=== PATIENT | female | born 1985 | race American Indian/Alaskan Native ===

== ENCOUNTER 2019-12-02 16:13 | Emergency (ER) | payer SELFPAY ==
[2019-12-02] MEDS ORDERED: Amoxicillin 250 MG/5 ML Susp 150 ML Bottle PO ONE (16:47)
[2019-12-02] MEDS ORDERED: Amoxicillin 500 MG Cap PO ONE (16:54)
--- NOTE | 2019-12-02 16:58 | EDM.PDOC ---
ED HPI GENERAL MEDICAL PROBLEM - General Chief Complaint: General Stated Complaint: SWOLLEN BUMPS ON NECK/SHOULDER PAIN DOWN LT ARM Time Seen by Provider: 12/02/19 16:20 - History of Present Illness INITIAL COMMENTS - FREE TEXT/NARRATIVE: History of present illness: Patient presents to the ED with painful adenopathy in her left anterior cervical chain. No fever no sore throat no runny nose no cough but she has had a rash off and on on the back of her neck for several years that has been flared up lately she saw Dr. nick for it who gave her some cream that did not help the rash has been itchy and irritated lately. No other medical problems no other complaints no allergies. Review of systems: As per history of present illness and below otherwise all systems reviewed and negative. Past medical history: As per history of present illness and as reviewed below otherwise noncontributory. Surgical history: As per history of present illness and as reviewed below otherwise noncontributory. Social history: No reported history of drug or alcohol abuse. Family history: As per history of present illness and as reviewed below otherwise noncontributory. Physical exam: HEENT: Atraumatic, normocephalic, pupils reactive, negative for conjunctival pallor or scleral icterus, mucous membranes moist, throat clear, neck supple, nontender, trachea midline. 2 tender lymph nodes that are swollen on the anterior left cervical chain. Lungs: Clear to auscultation, breath sounds equal bilaterally, chest nontender. Heart: S1S2, regular, negative for clicks, rubs, or JVD. Abdomen: Soft, nondistended, nontender. Negative for masses or hepatosplenomegaly. Negative for costovertebral tenderness. Pelvis: Stable nontender. Genitourinary: Deferred. Rectal: Deferred. Extremities: Atraumatic, negative for cords or calf pain. Neurovascular unremarkable. Neuro: Awake, alert, oriented. Cranial nerves II through XII unremarkable. Cerebellum unremarkable. Motor and sensory unremarkable throughout. Exam nonfocal. Skin: There is a confluent hypertrophied excoriated cracked raised leathery lesion approximately 6 x 8 cm to the posterior neck that has no reactivity with Patel lamp. Does not appear to be cellulitic. Diagnostics: [] Therapeutics: [] Impression: [] Plan: [] Definitive disposition and diagnosis as appropriate pending reevaluation and review of above. Left Clavicle Pain Score (Numeric/FACES): 6 - Related Data Allergies Allergy/AdvReac Type Severity Reaction Status Date / Time No Known Allergies Allergy Verified 12/02/19 16:24 Home Meds: Home Meds Amoxicillin 500 mg PO TID 10 Days #30 tab 12/02/19 [Rx] Betamethasone/Clotrimazole [Lotrisone] 15 gm .XX BID #1 tube 12/02/19 [Rx] Past Medical History - Past Health History Medical/Surgical History: Denies Medical/Surgical History HEENT History: Reports: None Cardiovascular History: Reports: None Respiratory History: Reports: None Gastrointestinal History: Reports: None Genitourinary History: Reports: None 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 Musculoskeletal History: Reports: None Neurological History: Reports: None Psychiatric History: Reports: None Endocrine/Metabolic History: Reports: None Hematologic History: Reports: None Immunologic History: Reports: None Oncologic (Cancer) History: Reports: None Dermatologic History: Reports: None - Infectious Disease History Infectious Disease History: Reports: Chicken Pox - Past Surgical History Head Surgeries/Procedures: Reports: None Musculoskeletal Surgical History: Reports: None Social & Family History - Family History Family Medical History: Noncontributory - Tobacco Use Smoking Status *Q: Never Smoker Second Hand Smoke Exposure: No - Caffeine Use Caffeine Use: Reports: Coffee - Recreational Drug Use Recreational Drug Use: No ED ROS GENERAL - Review of Systems Review Of Systems: See Below ED EXAM, GENERAL - Physical Exam Exam: See Below Course - Vital Signs Text/Narrative:: Patient will be started on amoxicillin and Lotrisone lotion will refer to Dr. Reyes dermatology for the rash. Last Recorded V/S: Last Vital Signs Temp 36.0 C L 12/02/19 16:25 Pulse 72 12/02/19 16:25 Resp 14 12/02/19 16:25 BP 117/66 12/02/19 16:25 Pulse Ox 98 12/02/19 16:25 - Orders/Labs/Meds Meds: Medications Discontinued Medications Generic Name Dose Route Start Last Admin Trade Name Freq PRN Reason Stop Dose Admin Amoxicillin 1,000 mg 12/02/19 16:47 Amoxil 250 Mg/5 Ml Susp PO 12/02/19 16:48 ONETIME ONE Amoxicillin 1,000 mg 12/02/19 16:54 Amoxil PO 12/02/19 16:55 ONETIME ONE Departure - Departure Time of Disposition: 16:53 Disposition: Home, Self-Care 01 Condition: Good Clinical Impression: Adenitis, Rash - Discharge Information *PRESCRIPTION DRUG MONITORING PROGRAM REVIEWED*: Not Applicable *COPY OF PRESCRIPTION DRUG MONITORING REPORT IN PATIENT SHIRA: Not Applicable Prescriptions: Amoxicillin 500 mg PO TID 10 Days #30 tab Betamethasone/Clotrimazole [Lotrisone] 15 gm .XX BID #1 tube Instructions: Rash, Adult Referrals: PCP,None [Primary Care Provider] - Forms: ED Department Discharge Additional Instructions: The following information is given to patients seen in the emergency department who are being discharged to home. This information is to outline your options for follow-up care. We provide all patients seen in our emergency department with a follow-up referral. The need for follow-up, as well as the timing and circumstances, are variable depending upon the specifics of your emergency department visit. If you don't have a primary care physician on staff, we will provide you with a referral. We always advise you to contact your personal physician following an emergency department visit to inform them of the circumstance of the visit and for follow-up with them and/or the need for any referrals to a consulting specialist. The emergency department will also refer you to a specialist when appropriate. This referral assures that you have the opportunity for follow-up care with a specialist. All of these measure are taken in an effort to provide you with optimal care, which includes your follow-up. Under all circumstances we always encourage you to contact your private physician who remains a resource for coordinating your care. When calling for follow-up care, please make the office aware that this follow-up is from your recent emergency room visit. If for any reason you are refused follow-up, please contact the [facility] Emergency Department at and asked to speak to the emergency department charge nurse. [facility] [address] [place] [id number] [facility] [address] [place] [id number] Keon Reyes [address] [facility] 102 Sepsis Event Note (ED) - Evaluation Sepsis Screening Result: No Definite Risk - Focused Exam Vital Signs: Vital Signs Temp Pulse Resp BP Pulse Ox 12/02/19 16:25 36.0 C L 72 14 117/66 98
[2019-12-02 17:00] VITALS: BP 111/65; PULSE 69
== END 2019-12-02 17:05 | disposition home or self-care (01) ==
LOC: MW.ED 16:13
DX: I88.9 Nonspecific lymphadenitis, unspecified (principal); R21 Rash and other nonspecific skin eruption
CPT/HCPCS: 99283; A9270

== ENCOUNTER 2020-04-22 13:44 | Emergency (ER) | payer MEDICAID, OTHER ==
[2020-04-22] MEDS ORDERED: Sodium Chloride 0.9% 2.5 ML Syringe FLUSH PRN (13:55)
[2020-04-22] MEDS ORDERED: Sodium Chloride 0.9% 10 ML Syringe FLUSH PRN (13:55)
--- NOTE | 2020-04-22 14:05 | EDM.PDOC ---
ED HPI GENERAL MEDICAL PROBLEM - General Chief Complaint: Cardiovascular Problem Stated Complaint: CHEST PAIN Time Seen by Provider: 04/22/20 13:44 Source of Information: Reports: Patient, Old Records History Limitations: Reports: No Limitations - History of Present Illness INITIAL COMMENTS - FREE TEXT/NARRATIVE: This is a very pleasant 34-year-old female with no pertinent past medical history presenting with chest discomfort. She describes substernal chest discomfort, onset yesterday morning. She describes it as "like a broken heart, but worse". She states that it is worse when she sits forward or when she touches her chest, which she states is tender. She has never had that in the past. The pain does not radiate. It does get somewhat worse with deep inspiration. No self treatment prior to arrival. She denies any associated nausea, vomiting, diaphoresis, or recent exertional chest discomfort or shortness of breath. Patient denies history of venous thromboembolism, lower extremity pain or swelling, hemoptysis, recent surgery or immobilization or long travel, history of active malignancy, or hormonal medication/product usage. No prior history of coronary artery disease or stroke. No family history of premature CAD. No recent viral URI type symptoms or recent illness. ROS: A 10-point review of systems was negative, except as noted in the HPI (or in the ROS section of this note). Past medical history: Reviewed, no additional pertinent history. Surgical history: Reviewed in system, no additional pertinent history. Social history: Reviewed in system, no additional pertinent history. Family history: Reviewed in system, no additional pertinent history. PHYSICAL EXAM Vital signs reviewed. Nursing notes reviewed. Constitutional: Awake, alert, non-distressed. Head: Normocephalic, atraumatic. Eyes: EOMI, conjunctiva normal, no discharge, no scleral icterus. Ears, Nose, Throat: External ears and nose normal, moist oral mucosa. Cardiovascular: 2+ radial pulses bilaterally, capillary refill less than 2 seconds. No lower extremity edema. Pulmonary: normal work of breathing, no accessory muscle use. Abdomen/GI: Soft, nontender, nondistended, no guarding or rigidity, no masses. Musculoskeletal: No deformities. Integumentary: Appropriate color for ethnicity, warm, dry, no pallor or jaundice, no rash. Neurologic: Alert, answering questions appropriately, normal speech, no facial droop, moving all extremities well. Psychiatric: Appropriate mood and affect, normal thought process. This patient was seen and evaluated during the 2019 SARS-CoV-2 novel coronavirus pandemic period. Community viral transmission is ongoing at time of this encounter and the emergency department is operating under pandemic response procedures. chest Pain Score (Numeric/FACES): 4 - Related Data Allergies Allergy/AdvReac Type Severity Reaction Status Date / Time No Known Allergies Allergy Verified 04/22/20 14:05 Home Meds: Home Meds . 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 Musculoskeletal History: Reports: None Neurological History: Reports: None Psychiatric History: Reports: None Endocrine/Metabolic History: Reports: None Hematologic History: Reports: None Immunologic History: Reports: None Oncologic (Cancer) History: Reports: None Dermatologic History: Reports: None - Infectious Disease History Infectious Disease History: Reports: Chicken Pox - Past Surgical History Head Surgeries/Procedures: Reports: None Musculoskeletal Surgical History: Reports: None Social & Family History - Family History Family Medical History: No Pertinent Family History - Caffeine Use Caffeine Use: Reports: Coffee ED ROS GENERAL - Review of Systems Review Of Systems: See Below ED EXAM, GENERAL - Physical Exam Exam: See Below ED ULTRASOUND - Cardiac Indication: possible pericardial effusion Exam type: focused transthoracic Findings: normal wall motion Impression: normal exam Images archived: No Cardiac US Text: Normal function, no pericardial effusion. No RV dilation. #1 Interpretation EKG Interpretation Comments: 12-Lead ECG Interpretation Acquired: 1:55 PM Rhythm: Sinus rhythm Rate: 78 bpm [place]: Normal Intervals: Normal Ectopy: None RV Strain: No obvious RV strain pattern. ST Segments/T-Waves: T wave inversions isolated to lead III Acute Ischemic Changes: None apparent Interpretation: No STEMI Course - Vital Signs Text/Narrative:: 34-year-old female presenting with greater than 24 hours of substernal chest pain, mildly pleuritic. Patient hemodynamically stable, afebrile, well-appearing, looks nontoxic. Differential diagnosis includes but is not limited to: ACS, pulmonary embolism, aortic dissection, acute systolic heart failure, pneumonia, pneumothorax, pericardial effusion, pleural effusion, pericarditis, endocarditis, esophageal rupture, GERD, drug-induced chest pain, chest wall pain, and many others. 2:09 PM: Twelve-lead EKG is nonischemic. She is in sinus rhythm in the 70s. We are going to obtain chest x-rays and labs including a D-dimer and troponin. A single troponin should be sufficient given the chronicity of her symptoms. I have low suspicion for thoracic aortic dissection at the moment given equal radial pulses, lack of marked hypertension, and lack of radiation of pain to the back. There is no evidence of acute systolic heart failure by physical examination. She does not complain of any cough or fever and is not hypoxic or tachycardic to suggest pneumonia. 2:26 PM: Limited bedside [id number] cardiac ultrasound shows grossly normal cardiac function, no pericardial effusion, no right ventricular dilation. Patient is now agreeable to aspirin and acetaminophen, which I ordered. Pending x-rays and labs. 3:07 PM: Lab work is reassuring. CBC shows normal cell lines. D-dimer is negative. Metabolic panel shows mild hypokalemia. Troponin is negative. P regnancy test is negative. We are waiting for her chest x-rays. 3:10 PM: Chest x-rays show no infiltrate, no cardiomegaly, no pneumothorax. No foreign body. Interpreted by me. At this point her work-up is negative. She is low risk by the HEART score, with a score of 0. Negative troponin, nonischemic EKG. I have low suspicion for pulmonary embolism and the patient has a negative D-dimer, she is not tachycardic, tachypneic, or hypoxic. There is no evidence of congestive heart failure, no evidence of an infiltrate on her x-rays to suggest pneumonia, she has no fever or constitutional infectious symptoms. No evidence of pericardial effusion by ultrasound. No history of recent vomiting to suggest esophageal rupture. No history of chest wall trauma. Low suspicion for pericarditis given negative troponin, nondiagnostic ECG, lack of pericardial effusion. Given negative work-up, we will plan to discharge her home and have her follow- up with a primary medical clinic. We did discuss her mild hypokalemia and will give her handouts about how to improve her potassium level. Plan: Patient is stable to discharge home with outpatient primary care clinic follow-up. Strict emergency department return precautions were provided, patient indicated understanding. All questions were answered prior to departure. Discharged in good condition. HEART Score for Major Cardiac Events RESULT SUMMARY: 0 points Low Score (0-3 points) Risk of MACE of 0.9-1.7%. INPUTS: History > 0 = Slightly suspicious EKG > 0 = Normal Age > 0 = <45 Risk factors > 0 = No known risk factors Initial troponin > 0 = ?normal limit Last Recorded V/S: Last Vital Signs Temp 36.0 C L 04/22/20 14:56 Pulse 80 04/22/20 14:56 Resp 16 04/22/20 14:56 BP 119/55 L 04/22/20 14:56 Pulse Ox 98 04/22/20 14:56 - Orders/Labs/Meds Orders: Active Orders 24 hr Category Date Time Status EKG Documentation Completion [RC] STAT Care 04/22/20 13:55 Active Pulse Oximetry [RC] ASDIRECTED Care 04/22/20 13:55 Active Sodium Chloride 0.9% [Saline Flush] Med 04/22/20 13:55 Active 10 ml FLUSH ASDIRECTED PRN Sodium Chloride 0.9% [Saline Flush] Med 04/22/20 13:55 Active 2.5 ml FLUSH ASDIRECTED PRN Saline Lock Insert [OM.PC] Stat Oth 04/22/20 13:55 Ordered Medication Orders Sodium Chloride (Saline Flush) 10 ml FLUSH ASDIRECTED PRN PRN Reason: Keep Vein Open Last Admin: 04/22/20 14:30 Dose: 10 ml Documented by: RONNIE Sodium Chloride (Saline Flush) 2.5 ml FLUSH ASDIRECTED PRN PRN Reason: Keep Vein Open Last Admin: 04/22/20 14:29 Dose: 2.5 ml Documented by: RONNIE Labs: Laboratory Tests 04/22/20 04/22/20 04/22/20 Range/Units 13:57 13:57 13:57 WBC 7.09 (4.0-11.0) K/uL RBC 4.69 (4.30-5.90) M/uL Hgb 13.5 (12.0-16.0) g/dL Hct 42.0 (36.0-46.0) % MCV 89.6 (80.0-98.0) fL MCH 28.8 (27.0-32.0) pg MCHC 32.1 (31.0-37.0) g/dL RDW Std Deviation 44.8 (28.0-62.0) fl RDW Coeff of Ritika 14 (11.0-15.0) % Plt Count 261 (150-400) K/uL MPV 10.40 (7.40-12.00) fL Neut % (Auto) 63.3 (48.0-80.0) % Lymph % (Auto) 27.9 (16.0-40.0) % Cascade % (Auto) 5.1 (0.0-15.0) % Eos % (Auto) 3.1 (0.0-7.0) % Baso % (Auto) 0.6 (0.0-1.5) % Neut # (Auto) 4.5 (1.4-5.7) K/uL Lymph # (Auto) 2.0 (0.6-2.4) K/uL Cascade # (Auto) 0.4 (0.0-0.8) K/uL Eos # (Auto) 0.2 (0.0-0.7) K/uL Baso # (Auto) 0.0 (0.0-0.1) K/uL Nucleated RBC % 0.0 /100WBC Nucleated RBCs # 0 K/uL D-Dimer, Quantitative 0.36 (0.0-0.50) mg/L FEU Sodium 140 (136-145) mmol/L Potassium 3.1 L (3.5-5.1) mmol/L Chloride 103 (98-107) mmol/L Carbon Dioxide 30.2 (21.0-32.0) mmol/L BUN 11 (7.0-18.0) mg/dL Creatinine 0.7 (0.6-1.0) mg/dL Est Cr Clr Drug Dosing 83.84 mL/min Estimated GFR (MDRD) > 60.0 ml/min Glucose 111 H (74-106) mg/dL Calcium 9.1 (8.5-10.1) mg/dL Total Bilirubin 0.3 (0.2-1.0) mg/dL AST 22 (15-37) IU/L ALT 41 (14-63) IU/L Alkaline Phosphatase 135 H (46-116) U/L Troponin I < 0.050 (0.000-0.056) ng/mL Total Protein 8.5 H (6.4-8.2) g/dL Albumin 4.0 (3.4-5.0) g/dL Globulin 4.5 H (2.6-4.0) g/dL Albumin/Globulin Ratio 0.9 (0.9-1.6) HCG, Qual (NEG) 04/22/20 Range/Units 13:57 WBC (4.0-11.0) K/uL RBC (4.30-5.90) M/uL Hgb (12.0-16.0) g/dL Hct (36.0-46.0) % MCV (80.0-98.0) fL MCH (27.0-32.0) pg MCHC (31.0-37.0) g/dL RDW Std Deviation (28.0-62.0) fl RDW Coeff of Ritika (11.0-15.0) % Plt Count (150-400) K/uL MPV (7.40-12.00) fL Neut % (Auto) (48.0-80.0) % Lymph % (Auto) (16.0-40.0) % Cascade % (Auto) (0.0-15.0) % Eos % (Auto) (0.0-7.0) % Baso % (Auto) (0.0-1.5) % Neut # (Auto) (1.4-5.7) K/uL Lymph # (Auto) (0.6-2.4) K/uL Cascade # (Auto) (0.0-0.8) K/uL Eos # (Auto) (0.0-0.7) K/uL Baso # (Auto) (0.0-0.1) K/uL Nucleated RBC % /100WBC Nucleated RBCs # K/uL D-Dimer, Quantitative (0.0-0.50) mg/L FEU Sodium (136-145) mmol/L Potassium (3.5-5.1) mmol/L Chloride (98-107) mmol/L Carbon Dioxide (21.0-32.0) mmol/L BUN (7.0-18.0) mg/dL Creatinine (0.6-1.0) mg/dL Est Cr Clr Drug Dosing mL/min Estimated GFR (MDRD) ml/min Glucose (74-106) mg/dL Calcium (8.5-10.1) mg/dL Total Bilirubin (0.2-1.0) mg/dL AST (15-37) IU/L ALT (14-63) IU/L Alkaline Phosphatase (46-116) U/L Troponin I (0.000-0.056) ng/mL Total Protein (6.4-8.2) g/dL Albumin (3.4-5.0) g/dL Globulin (2.6-4.0) g/dL Albumin/Globulin Ratio (0.9-1.6) HCG, Qual NEGATIVE (NEG) Meds: Medications Generic Name Dose Route Start Last Admin Trade Name Freq PRN Reason Stop Dose Admin Sodium Chloride 10 ml 04/22/20 13:55 04/22/20 14:30 Saline Flush FLUSH 10 ml ASDIRECTED PRN Administration Keep Vein Open Sodium Chloride 2.5 ml 04/22/20 13:55 04/22/20 14:29 Saline Flush FLUSH 2.5 ml ASDIRECTED PRN Administration Keep Vein Open Discontinued Medications Generic Name Dose Route Start Last Admin Trade Name Freq PRN Reason Stop Dose Admin Acetaminophen 1,000 mg 04/22/20 14:26 04/22/20 14:55 Tylenol Extra Strength PO 04/22/20 14:27 1,000 mg ONETIME ONE Administration Aspirin 324 mg 04/22/20 14:26 04/22/20 14:55 Aspirin PO 04/22/20 14:27 324 mg ONETIME ONE Administration Departure - Departure Time of Disposition: 15:30 Disposition: Home, Self-Care 01 Condition: Good Clinical Impression: Atypical chest pain, Hypokalemia Instructions: Hypokalemia, Nonspecific Chest Pain, Adult, Rxej-[id number], Potassium Content of Foods Referrals: Jc Gaspar MD [Primary Care Provider] - 1 Week (For follow-up of chest pain and reevaluation of slightly low potassium level.) Forms: ED Department Discharge Additional Instructions: You were seen in the emergency department for chest pain. At this point your blood work, EKG, and x-rays look reassuring. I see no sign of a heart attack, blood clot, pneumonia, or any other dangerous cause of your chest pain. Your blood potassium level is slightly low. We will give you a handout about what foods she can eat to help address this. It can be rechecked by primary doctor. You can take [id number] Tylenol or Motrin as directed on the package for pain. I do want you to follow-up with a primary medical doctor the next few days for reevaluation. Warning signs to come back to the ER include: Worsening chest pain, shortness of breath, lightheadedness, or any other new or concerning symptoms. Please return the emergency department immediately if your symptoms worsen or if you feel worse. Thank you for choosing the [facility] emergency department in [place] for your medical needs today. It was a pleasure caring for you. The following information is given to patients seen in the emergency department who are being discharged. This information is to outline your options for follow-up care. We provide all patients seen in our emergency department with a follow-up referral. The need for follow-up, as well as the timing and circumstances, are variable depending upon the specifics of your emergency department visit. If you don't have a primary care physician on staff, we will provide you with a referral. We always advise you to contact your personal physician following an emergency department visit to inform them of the circumstance of the visit and for follow-up with them and/or the need for any referrals to a consulting specialist. The emergency department will also refer you to a specialist when appropriate. This referral assures that you have the opportunity for follow-up care with a specialist. All of these measure are taken in an effort to provide you with optimal care, which includes your follow-up. Under all circumstances we always encourage you to contact your private physician who remains a resource for coordinating your care. When calling for follow-up care, please make the office aware that this follow-up is from your recent emergency room visit. If for any reason you are refused follow-up, please contact the [facility] Emergency Department at and asked to speak to the emergency department charge nurse. If you do not have a primary care physician that is caring for you, you can contact these clinics below to set up an appointment to establish care: [facility] - [facility] [address] [place] [id number] [facility] [address] [place] [id number] Sepsis Event Note (ED) - Evaluation Sepsis Screening Result: No Definite Risk - Focused Exam Vital Signs: Vital Signs Temp Pulse Resp BP Pulse Ox 04/22/20 14:56 36.0 C L 80 16 119/55 L 98 04/22/20 14:26 36.0 C L 74 16 110/72 98 04/22/20 14:03 36.1 C 82 16 128/64 100 - My Orders Last 24 Hours: My Active Orders 04/22/20 13:55 EKG Documentation Completion [RC] STAT Pulse Oximetry [RC] ASDIRECTED Sodium Chloride 0.9% [Saline Flush] 10 ml FLUSH ASDIRECTED PRN Sodium Chloride 0.9% [Saline Flush] 2.5 ml FLUSH ASDIRECTED PRN Saline Lock Insert [OM.PC] Stat - Assessment/Plan Last 24 Hours: My Active Orders 04/22/20 13:55 EKG Documentation Completion [RC] STAT Pulse Oximetry [RC] ASDIRECTED Sodium Chloride 0.9% [Saline Flush] 10 ml FLUSH ASDIRECTED PRN Sodium Chloride 0.9% [Saline Flush] 2.5 ml FLUSH ASDIRECTED PRN Saline Lock Insert [OM.PC] Stat
[2020-04-22] MEDS ORDERED: Acetaminophen 500 MG Tab PO ONE (14:26)
[2020-04-22] MEDS ORDERED: Aspirin 81 MG Tab.Chew PO ONE (14:26)
[2020-04-22 14:42] LABS: BLOOD UREA NITROGEN,BUN 11 mg/dL (7.0-18.0); CARBON DIOXIDE,CO2 30.2 mmol/L (21.0-32.0); CHLORIDE,CL 103 mmol/L (98-107); GLUCOSE RANDOM 111 mg/dL (74-106); POTASSIUM,K 3.1 mmol/L (3.5-5.1); SODIUM,NA 140 mmol/L (136-145)
[2020-04-22 14:57] VITALS: BP 119/55; PULSE 80
--- NOTE | 2020-04-22 15:31 | CR ---
Indication: Substernal chest discomfort Comparison: None available. Technique: PA and Lateral views chest Findings: There is minimal basilar atelectasis versus scar. There is no dense consolidation, effusion, or pneumothorax. The cardiomediastinal silhouette is within normal limits. The bony thorax is grossly intact. Impression: Minimal basilar atelectasis versus scar without evidence of dense consolidation. Dictated by Venkatesh Ngo MD @ Apr 22 2020 3:29PM Signed by Dr. Venkatesh Ngo @ Apr 22 2020 3:30PM
== END 2020-04-22 16:09 | disposition home or self-care (01) ==
LOC: MW.ED 13:44
DX: R07.89 Other chest pain (principal); E87.6 Hypokalemia
CPT/HCPCS: 36415; 71046; 80053; 84484; 84703; 85025; 85379; 93005; 99285; A9270; 93010; 99284

== ENCOUNTER 2020-08-26 13:44 | Emergency (ER) | payer MEDICAID ==
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
[2020-08-26 15:56] VITALS: BP 122/70; PULSE 88
== END 2020-08-26 15:20 | disposition home or self-care (01) ==
LOC: MW.ED 13:44
DX: S00.93XA Contusion of unspecified part of head, initial encounter (principal); W22.8XXA Striking against or struck by other objects, initial encounter
CPT/HCPCS: 70450; 70450-26; 99283; 99283-25

== ENCOUNTER 2021-07-05 21:17 | Emergency (ER) | payer SELFPAY ==
[2021-07-05] MEDS ORDERED: Lidocaine 1% with EPINEPHrine 1:100,000 20 ML MDV INJECT ONE (22:21)
[2021-07-05] MEDS ORDERED: Lidocaine/EPINEPHrine/Tetracaine Soln 1 ML TOP ONE (22:21)
[2021-07-06 00:11] VITALS: BP 114/72; PULSE 72
== END 2021-07-06 00:11 | disposition home or self-care (01) ==
LOC: MW.ED 21:17
DX: L02.11 Cutaneous abscess of neck (principal); A59.9 Trichomoniasis, unspecified
CPT/HCPCS: 10060; 99282-25

== ENCOUNTER 2021-12-11 02:00 | Emergency (ER) | payer SELFPAY ==
[2021-12-11 02:19] VITALS: BP 124/74; PULSE 83
== END 2021-12-11 02:45 ==
LOC: MW.ED 02:00
DX: Z13.89 Encounter for screening for other disorder (principal); R11.0 Nausea
CPT/HCPCS: 81025; 99283

== ENCOUNTER 2022-11-19 19:13 | Emergency (ER) | payer SELFPAY ==
[2022-11-19 21:53] VITALS: BP 125/76; PULSE 101
== END 2022-11-19 22:10 ==
LOC: MW.ED 19:13
DX: Z02.89 Encounter for other administrative examinations (principal)
CPT/HCPCS: 99282; 99283

== ENCOUNTER 2023-07-03 10:38 | Emergency (ER) | payer SELFPAY ==
[2023-07-03 10:52] VITALS: BP 105/49; PULSE 75
== END 2023-07-03 11:22 ==
LOC: MW.ED 10:38
DX: Z02.89 Encounter for other administrative examinations (principal)
CPT/HCPCS: 82947; 99281; 99283

== ENCOUNTER 2023-09-19 12:38 | Emergency (ER) | payer SELFPAY ==
[2023-09-19 13:38] VITALS: BP 113/68; PULSE 86
[2023-09-19] MEDS: Cephalexin 500 MG Cap PO ONE (13:55)
[2023-09-19] MEDS: Ibuprofen 600 MG Tab PO ONE (13:55)
== END 2023-09-19 13:59 | disposition home or self-care (01) ==
LOC: MW.ED 12:38
DX: L03.012 Cellulitis of left finger (principal); K02.9 Dental caries, unspecified; Z75.8 Other problems related to medical facilities and other health care
CPT/HCPCS: 99283; A9270

== ENCOUNTER 2023-09-23 18:19 | Emergency (ER) | payer SELFPAY ==
[2023-09-23 19:25] VITALS: BP 115/70; PULSE 77
[2023-09-23] MEDS: Lidocaine 1% 5 ML VIAL INJECT STA (20:55)
[2023-09-23] MEDS: Sulfamethoxazole/Trimethoprim 800-160 MG Tab PO STA (21:38)
== END 2023-09-23 21:48 | disposition home or self-care (01) ==
LOC: MW.ED 18:19
DX: L03.011 Cellulitis of right finger (principal); Z75.8 Other problems related to medical facilities and other health care; Z79.899 Other long term (current) drug therapy
CPT/HCPCS: 10060; 73130; 99283; A9270; J3490

== ENCOUNTER 2024-06-02 11:46 | Emergency (ER) | payer SELFPAY ==
[2024-06-02 11:56] VITALS: BP 129/88; PULSE 98
== END 2024-06-02 12:13 ==
LOC: MW.ED 11:46
DX: Z02.89 Encounter for other administrative examinations (principal); K04.7 Periapical abscess without sinus; L30.9 Dermatitis, unspecified
CPT/HCPCS: 99283